=== PATIENT | male | born 1965 ===

== ENCOUNTER 2018-10-03 11:18 | Outpatient (CLI) | payer OTHER | END 2018-10-03 23:59 | disposition home or self-care (01) | LOC: RAD 11:18 → EEVIPCON 13:00 → RAD 23:59 | PROVIDERS: ATTEND Family Medicine | DX: G40.909 Epilepsy, unspecified, not intractable, without status epilepticus (principal); Z72.820 Sleep deprivation | CPT/HCPCS: 95819 ==